=== PATIENT | female | born 1995 | race Caucasian/White ===

== ENCOUNTER 2018-10-24 14:48 | Emergency (ER) | payer BC, OTHER ==
[2018-10-24 15:00] VITALS: BP 146/92
--- NOTE | 2018-10-24 15:14 | UC ---
Hand/Wrist HPI - HPI Summary HPI Summary: 22-year-old woman comes in with a chief complaint of an injury to the right hand which occurred about a week ago. She was playing flag football and she jammed her right fifth finger. Had pain right away. No numbness or weakness. Pain did improve some but it's continuing to hurt. Movement makes the pain worse rest makes the pain better. The pain is focused on the right fifth MCP joint. Pain is worse with palpation of the dorsum and also extension of the fifth finger. - History Of Current Complaint Chief Complaint: UCUpperExtremity Stated Complaint: FINGER INJURY Time Seen by Provider: 10/24/18 14:51 Hx Last Menstrual Period: 10/07/18 Pain Intensity: 2 - Allergies/Home Medications Allergies/Adverse Reactions: Allergies Allergy/AdvReac Type Severity Reaction Status Date / Time No Known Allergies Allergy Verified 10/24/18 15:00 Home Medications: Home Medications Ibuprofen 1 tab PO ONCE PRN 10/24/18 [History Confirmed 10/24/18] Naproxen Sodium [Aleve] 1 tab PO ONCE PRN 10/24/18 [History Confirmed 10/24/18] PMH/Surg Hx/FS Hx/Imm Hx Previously Healthy: Yes - Surgical History Surgical History: Yes Surgery Procedure, Year, and Place: foot surgery. wisdom teeth removal - Family History Known Family History: Positive: Non-Contributory - Social History Alcohol Use: Occasionally Substance Use Type: Marijuana Substance Use Comment - Amount & Last Used: sometimes at home Smoking Status (MU): Never Smoked Tobacco Review of Systems All Other Systems Reviewed And Are Negative: Yes Constitutional: Positive: Negative Skin: Positive: Negative Eyes: Positive: Negative ENT: Positive: Negative Respiratory: Positive: Negative Cardiovascular: Positive: Negative Gastrointestinal: Positive: Negative Motor: Positive: Negative Neurovascular: Positive: Negative Musculoskeletal: Positive: Other: - see hpi Neurological: Positive: Negative Psychological: Positive: Negative Is Patient Immunocompromised?: No Physical Exam Triage Information Reviewed: Yes Appearance: Well-Appearing, No Pain Distress, Well-Nourished Vital Signs: Initial Vital Signs Temp 98.9 F 10/24/18 14:54 Pulse 77 10/24/18 14:54 Resp 16 10/24/18 14:54 BP 146/92 10/24/18 14:54 Pulse Ox 99 10/24/18 14:54 Vital Signs Reviewed: Yes Eye Exam: Normal Eyes: Positive: Conjunctiva Clear Neck: Positive: Supple Respiratory: Positive: No respiratory distress Musculoskeletal: Positive: Other: - Right fifth MCP is tender to palpation on the dorsum. There is no swelling no erythema. No skin break. Finger has full range of motion flexion. Extension is minimally limited secondary to pain. Normal sensation normal capillary refill. Neurological: Positive: Alert Psychological: Positive: Age Appropriate Behavior Skin Exam: Normal Hand/Wrist Course/Dx - Differential Dx/Diagnosis Provider Diagnosis: Sprain of right little finger Discharge ED - Sign-Out/Discharge Documenting (check all that apply): Patient Departure All imaging exams completed and their final reports reviewed: Yes - Discharge Plan Condition: Stable Disposition: HOME Patient Education Materials: Finger Sprain (ED) Referrals: Moriah Wood MD [Primary Care Provider] - Everette Wilkes MD [Medical Doctor] - Additional Instructions: FOLLOW UP WITH AN ORTHOPEDIC HAND SPECIALIST IF NOT COMPLETELY IMPROVED. GET RECHECKED SOONER IF YOUR CONDITION WORSENS OR ANY QUESTIONS OR CONCERNS. - Billing Disposition and Condition Condition: STABLE Disposition: Home
== END 2018-10-24 15:45 | disposition home or self-care (01) ==
LOC: UCEAST 14:48
DX: S63.616A Unspecified sprain of right little finger, initial encounter (principal); X58.XXXA Exposure to other specified factors, initial encounter; Y93.62 Activity, american flag or touch football; Y92.328 Other athletic field as the place of occurrence of the external cause; Y99.8 Other external cause status
CPT/HCPCS: 99211; G0463